=== PATIENT | male | born 1945 | race Caucasian/White ===

== ENCOUNTER → 2020-08-15 10:05 | Outpatient (CLI) | payer OTHER, MEDICARE, SELFPAY ==
[2020-08-15 11:34] LABS: Add Manual Diff / Slide Review NO; Basophils Absolute Auto 0 /uL (0-100); Basophils Percent Auto 0.5 % (0-2); Eosinophils Absolute Auto 0 /uL (0-450); Hematocrit 45.6 % (41-53); Hemoglobin 15.2 g/dL (13.5-17.5); Lymphocytes Absolute Auto 800 /uL (1100-4500); Lymphocytes Percent Auto 14.8 % (25-40); Mean Corpuscular HGB Conc 33.3 % (30-36); Mean Corpuscular Hemoglobin 32.3 PG (26-34); Monocytes Absolute Auto 400 /uL (0-900); Monocytes Percent Auto 7.9 % (3-14); Neutrophils Absolute Auto 3900 /uL (1500-7000); Neutrophils Percent Auto 75.8 % (50-75); Platelet Count 122 X10^3/uL (150-400); Red Cell Distribution Width 13.4 % (11.6-14.8); White Blood Cell Count 5.1 X10^3/uL (4.5-11.0)
[2020-08-15 12:04] LABS: BUN Creatinine Ratio 18.7 (6-22); Blood Urea Nitrogen 17 mg/dL (9-20); Calcium 8.9 mg/dL (8.4-10.2); Carbon Dioxide 30 mmol/L (22-32); Chloride 105 mmol/L (98-107); Estimated Glomerular Filt Rate > 60.0 mL/min (>60); Glucose 106 mg/dL (80-110); HEMOLYSIS < 15 (0-50); Magnesium 2.2 mg/dL (1.6-2.3); Potassium 4.1 mmol/L (3.4-5.1); Sodium 138 mmol/L (137-145)
[2020-08-15 12:33] LABS: TSH w/ Reflex to FT4 1.81 uIU/mL (0.47-4.68)
== END ==
PROVIDERS: PCP Internal Medicine; Referring Provider Internal Medicine Cardiovascular Disease; Visit Provider Internal Medicine Cardiovascular Disease
DX: I48.19 Other persistent atrial fibrillation (principal)
CPT/HCPCS: 36415; 80048; 83735; 84443; 85025

== ENCOUNTER → 2020-10-12 09:01 | Outpatient (CLI) | payer OTHER, SELFPAY ==
--- NOTE | 2020-10-12 | DI.ECHO.S_ITS ---
[place] [facility]---------+ [facility] +---------+ : : [address] : : : : [id number] : : : : Phone: [phone]---------+ Echocardiogram Report + + :Name: ELISEO BAIRD Study Date: 10/12/2020 Height: 73 in : :[facility] ReadingLocation: Weight: 189 lb : : Gender: Male BSA: 2.1 m2 : :: 1945 Age: 74 yrs BP: 128/98 mmHg: :Reason For Study: ATRIAL FIBRILLATION : :Ordering Physician: STACEY, : :HARMEET Performed By: Lacey Haney : :Referring: HARMEET RUBIN : + + Interpretation Summary 1) Normal left ventricular size, wall motion, and systolic function (EF 55- 60%). 2) Normal right ventricular size and function. 3) Severe left atrial enlargement present. 4) Calcific mitral valve with no obvious prolapse. 5) There is moderate mitral regurgitation that is directed posteriorly. 6) There is mild to moderate tricuspid regurgitation. 7) The right ventricular systolic pressure is estimated to be at least 34 mmHg based on an estimated right atrial pressure of 3 mm Hg. 8) There is a trace pericardial effusion that is circumferential. 9) No prior Echo available for comparison. Procedure: A two-dimensional transthoracic echocardiogram with color flow and Doppler was performed. The study quality was technically adequate. There is no prior echocardiogram noted for this patient. The patient was in atrial fibrillation with heart rates between 87-127 bpm during the exam. Left Ventricle: The left ventricle is normal in size. There is mild concentric left ventricular hypertrophy. The ejection fraction is estimated to be 55-60%. Diastolic function could not be accurately assessed due to atrial fibrillation. Right Ventricle: The right ventricle is normal in size and function. Atria: The left atrium is severely dilated. The right atrium is mild to moderately dilated. There is no Doppler evidence for an interatrial shunt. Mitral Valve: The mitral valve chordae are thickened and/or calcified. The mitral papillary muscle appears thickened and/or calcified. There is moderate mitral annular calcification. The mitral valve mean gradient is 3.8 mmHg. There is moderate mitral regurgitation. Aortic Valve: The aortic valve is slightly calcified. The aortic valve is trileaflet. The aortic valve opens well. There is no aortic valve stenosis. No aortic regurgitation is present. Tricuspid Valve: The tricuspid valve leaflets are thin and pliable. The right ventricular systolic pressure is estimated to be at least 34 mmHg based on an estimated right atrial pressure of 3 mm Hg. There is mild to moderate tricuspid regurgitation. Pulmonic Valve: The pulmonic valve leaflets are thin and pliable; valve motion is normal. There is trace pulmonic regurgitation. Great Vessels: The aortic root is borderline dilated. The ascending aorta is at the upper limits of normal in size. The IVC is of normal diameter and collapses greater than 50% with a sniff. This suggests a low right atrial pressure of 3 mm Hg. Pericardium/ Pleura There is a trace pericardial effusion that is circumferential. There is no pleural effusion. MMode/2D Measurements & Calculations LVIDd: 5.7 cm LVOT diam: 2.2 cm LVIDs: 4.2 cm Ao root diam: 4.0 cm FS: 25.8 % asc Aorta Diam: 3.6 cm EPSS: 1.6 cm Ao Arch Diam (Prox Trans): 2.6 cm IVSd: 1.2 cm LVPWd: 1.1 cm LV montoya. diameter/BSA (cm/m^2): 2.7 LV sys. diameter/BSA (cm/m^2): 2.0 LA A2 area: 39.2 cm2 RA long axis: 6.9 cm LA A4 area: 51.0 cm2 RA area: 25.5 cm2 LA length (vol): 8.2 cm RA vol: 79.9 ml LA vol: 206.3 ml RA : 38.0 ml/m2 LA vol index: 98.2 ml/m2 IVC diam: 2.0 cm RVD1 (basal): 3.5 cm TAPSE: 2.1 cm Doppler Measurements & Calculations Ao V2 max: 91.4 cm/sec LVOT Max Enrique: 63.7 cm/sec Ao V2 mean: 55.2 cm/sec LV V1 max P.6 mmHg Ao max P.4 mmHg LV V1 VTI: 11.0 cm Ao mean P.5 mmHg JANETTE(I,D): 3.2 cm2 Ao V2 VTI: 12.9 cm JANETTE(V,D): 2.6 cm2 sev ratio: 0.85 JANETTE indexed to BSA (cm^2/m^2): 1.5 MV E max enrique: 163.3 cm/sec TR max enrique: 279.2 cm/sec MV A max enrique: 3.6 cm/sec TR max P.2 mmHg MV E/A: 45.5 PA V2 max: 49.1 cm/sec Med Peak E' Enrique: 6.8 cm/sec PA V2 mean: 35.2 cm/sec E/E' med: 24.1 PA mean P.58 mmHg Lat Peak E' Enrique: 10.2 cm/sec PA pr(Accel): 44.7 mmHg E/E' lat: 16.0 E/e' average: 20.0 MV dec time: 0.12 sec MVA(VTI): 1.6 cm2 MR ERO: 0.54 cm2 MV V2 mean: 87.8 cm/sec MR PISA: 6.3 cm2 MV mean P.8 mmHg MR flow rate: 267.2 cm3/sec MV V2 VTI: 26.7 cm MR PISA radius: 1.0 cm SV(LVOT): 41.6 ml Reading Physician:01:03 PM
== END ==
PROVIDERS: PCP Internal Medicine; Referring Provider Internal Medicine Cardiovascular Disease; Visit Provider Internal Medicine Cardiovascular Disease
DX: I08.1 Rheumatic disorders of both mitral and tricuspid valves (principal); I48.19 Other persistent atrial fibrillation
CPT/HCPCS: 93306

== ENCOUNTER → 2022-01-19 14:49 | Outpatient (CLI) | payer OTHER, SELFPAY ==
--- NOTE | 2022-01-19 | DI.ECHO.S_ITS ---
[place] +---------+ [facility] +---------+ : : [address] : : : : [id number] : : : : Phone: [phone] +---------+ Echocardiogram Report + + :Name: ELISEO BAIRD Study Date: 01/19/2022 Height: 73 in : :[facility] ReadingLocation: Weight: 200 lb : : Gender: Male BSA: 2.2 m2 : :: 1945 Age: 76 yrs BP: 143/112 mmHg: :Reason For Study: MITRAL INSUFFICIENCY : :Ordering Physician: STACEY, : :HARMEET Performed By: Lacey Haney : :Referring: HARMEET RUBIN : + + Interpretation Summary 1) Normal left ventricular size and thickness with borderline reduced systolic function (EF about 50%). 2) The right ventricle is normal size. Right ventricular systolic function is at the lower limits of normal. 3) The left atrium is very severely dilated. 4) Calcific mitral valve with no obvious prolapse. 5) There is moderate to severe mitral regurgitation. 6) There is moderate tricuspid regurgitation. 7) The right ventricular systolic pressure is estimated to be at least 42 mmHg based on an estimated right atrial pressure of 8 mm Hg. 8) The aortic root is moderately dilated at 4.7cm. 9) There is a trace loculated pericardial effusion. 10) Compared to the Echo done 10/12/2020, mitral regurgitation has worsed from moderate to moderate-severe and LVEF has decreased from 55-60% to about 50% on this study. Procedure: A two-dimensional transthoracic echocardiogram with color flow and Doppler was performed. The study quality was technically adequate. Comparison is made with the echocardiogram of 10/12/2020. The patient was in atrial fibrillation with heart rates between 100-136 bpm during the exam. Left Ventricle: The left ventricle is normal in size and wall thickness. Left ventricular ejection fraction is estimated to be 50 +/- 5%. There is a mild dyssynchronous contraction pattern, consistent with a conduction abnormality. Right Ventricle: The right ventricle is normal size. Right ventricular systolic function is at the lower limits of normal. Atria: The left atrium is severely dilated. There is no Doppler evidence for an interatrial shunt. Mitral Valve: The mitral papillary muscle appears thickened and/or calcified. The mitral valve chordae are thickened and/or calcified. There is moderate mitral annular calcification. The mitral valve leaflets appear moderately thickened, but open well. The mitral valve mean gradient is 5.6 mmHg. There is moderate to severe mitral regurgitation. The mitral regurgitant jet is eccentrically directed. Aortic Valve: The aortic valve is trileaflet. The aortic valve opens well. The aortic valve is slightly calcified. There is no aortic valve stenosis. There is trace aortic regurgitation. Tricuspid Valve: The tricuspid valve is normal in structure but is abnormal in function. There is moderate tricuspid regurgitation. The right ventricular systolic pressure is estimated to be at least 42 mmHg based on an estimated right atrial pressure of 8 mm Hg. Pulmonic Valve: The pulmonic valve leaflets are thin and pliable; valve motion is normal. There is mild pulmonic regurgitation. Great Vessels: The aortic root is moderately dilated. The ascending aorta is at the upper limits of normal in size. The IVC is dilated (diameter is greater than 2.1 cm) yet it collapses greater than 50% with a sniff. This suggests a right atrial pressure of 8 mm Hg. Pericardium/ Pleura There is a trace loculated pericardial effusion. There is no pleural effusion. MMode/2D Measurements & Calculations LVIDd: 5.8 cm LVOT diam: 2.1 cm LVIDs: 4.2 cm Ao root diam: 4.7 cm FS: 27.2 % asc Aorta Diam: 3.7 cm IVSd: 0.70 cm Ao Arch Diam (Prox Trans): 2.9 cm LVPWd: 0.80 cm LV montoya. diameter/BSA (cm/m^2): 2.7 LV sys. diameter/BSA (cm/m^2): 1.9 LA A2 area: 57.3 cm2 RA long axis: 7.4 cm LA A4 area: 52.9 cm2 RA area: 31.6 cm2 LA length (vol): 8.4 cm RA vol: 114.8 ml LA vol: 307.8 ml RA : 53.4 ml/m2 LA vol index: 143.0 ml/m2 IVC diam: 2.5 cm RVD1 (basal): 3.9 cm RVD2 (mid): 3.5 cm TAPSE: 1.6 cm Doppler Measurements & Calculations Ao V2 max: 82.1 cm/sec LVOT Max Enrique: 52.5 cm/sec Ao V2 mean: 59.9 cm/sec LV V1 max P.1 mmHg Ao max P.7 mmHg LV V1 VTI: 8.8 cm Ao mean P.6 mmHg JANETTE(I,D): 2.3 cm2 Ao V2 VTI: 13.6 cm JANETTE(V,D): 2.2 cm2 sev ratio: 0.64 JANETTE indexed to BSA (cm^2/m^2): 1.0 MV E max enrique: 184.9 cm/sec TR max enrique: 291.6 cm/sec MV A max enrique: 2.9 cm/sec TR max P.0 mmHg MV E/A: 64.8 PA pr(Accel): 50.7 mmHg Med Peak E' Enrique: 5.5 cm/sec E/E' med: 33.9 Lat Peak E' Enrique: 10.5 cm/sec E/E' lat: 17.6 E/e' average: 25.7 MV dec time: 0.12 sec MVA(VTI): 1.1 cm2 MV V2 mean: 102.4 cm/sec SV(LVOT): 30.8 ml MV mean P.6 mmHg MV V2 VTI: 28.0 cm Reading Physician:10:25 AM
== END ==
PROVIDERS: PCP Internal Medicine; Visit Provider Internal Medicine Cardiovascular Disease
DX: I08.1 Rheumatic disorders of both mitral and tricuspid valves (principal); I77.810 Thoracic aortic ectasia
CPT/HCPCS: 93306

== ENCOUNTER → 2022-02-06 16:09 | Outpatient (CLI) | payer OTHER, SELFPAY ==
[2022-02-06 16:51] LABS: Add Manual Diff / Slide Review NO; Basophils Absolute Auto 0 /uL (0-100); Basophils Percent Auto 0.5 % (0-2); Eosinophils Absolute Auto 100 /uL (0-450); Eosinophils Percent Auto 1.2 % (2-4); Hemoglobin 15.5 g/dL (13.5-17.5); Lymphocytes Absolute Auto 1000 /uL (1100-4500); Lymphocytes Percent Auto 18.4 % (25-40); Mean Corpuscular HGB Conc 34.4 % (30-36); Mean Corpuscular Hemoglobin 32.2 PG (26-34); Mean Corpuscular Volume 93.7 fL (80-100); Monocytes Absolute Auto 500 /uL (0-900); Neutrophils Absolute Auto 3900 /uL (1500-7000); Neutrophils Percent Auto 70.9 % (50-75); Platelet Count 120 X10^3/uL (150-400); Red Blood Cell Count 4.81 X10^6/uL (4.5-5.9); Red Cell Distribution Width 13.9 % (11.6-14.8); White Blood Cell Count 5.4 X10^3/uL (4.5-11.0)
[2022-02-06 17:04] LABS: BUN Creatinine Ratio 19.3 (6-22); Blood Urea Nitrogen 22 mg/dL (9-20); Calcium 8.8 mg/dL (8.4-10.2); Carbon Dioxide 28 mmol/L (22-32); Chloride 106 mmol/L (98-107); Cholesterol 136 mg/dL (140-199); Estimated Glomerular Filt Rate > 60 mL/min (>60); Glucose 100 mg/dL (80-110); HDL Cholesterol 44 mg/dL (40-60); HEMOLYSIS < 15 (0-50); LDL Cholesterol Calculated 80 mg/dL (<100); Sodium 141 mmol/L (137-145); Triglycerides 59 mg/dL (35-150)
== END ==
PROVIDERS: PCP Internal Medicine; Referring Provider Internal Medicine Cardiovascular Disease; Visit Provider Internal Medicine Cardiovascular Disease
DX: I10 Essential (primary) hypertension (principal)
CPT/HCPCS: 36415; 80048; 80061; 85025

== ENCOUNTER → 2023-01-29 09:04 | Outpatient (CLI) | payer OTHER, SELFPAY ==
--- NOTE | 2023-01-29 | DI.ECHO.S_ITS ---
[place] [facility]---------+ [facility] +---------+ : : [address] : : : : [id number] : : : : Phone: [phone] +---------+ Echocardiogram Report + + :Name: ELISEO BAIRD Study Date: 01/29/2023 Height: 73 in : :[facility] ReadingLocation: Weight: 210 lb : : Gender: Male BSA: 2.2 m2 : :: 1945 Age: 77 yrs BP: 118/86 mmHg: :Reason For Study: ATRIAL FIBRILLATION : :Ordering Physician: STACEY, : :EAN Performed By: Lacey Haney : :Referring: HARMEET RUBIN : + + Interpretation Summary 1) Normal left ventricular size and thickness with borderline reduced systolic function (EF about 50%). 2) The right ventricle is normal size. Right ventricular systolic function is at the lower limits of normal. 3) The left atrium is very severely dilated. 4) Calcific mitral valve with no obvious prolapse. 5) There is moderate to severe mitral regurgitation. 6) There is mild to moderate tricuspid tricuspid regurgitation. 7) The right ventricular systolic pressure is estimated to be at least 42 mmHg based on an estimated right atrial pressure of 8 mm Hg. 8) The aortic root is moderately dilated at 4.3cm. 9) Compared to the Echo done 01/19/2022, no significant change. Procedure: A two-dimensional transthoracic echocardiogram with color flow and Doppler was performed. The study quality was technically good. Comparison is made with the echocardiogram of 01/19/2022. The patient was in atrial fibrillation with heart rates between 88-115 bpm during the exam. Left Ventricle: The left ventricle is normal in size and wall thickness. Left ventricular ejection fraction is estimated to be 50 +/- 5%. Right Ventricle: The right ventricle is normal size. Right ventricular systolic function is at the lower limits of normal. Atria: The left atrium is severely dilated. The right atrium is severely dilated. There is no Doppler evidence for an interatrial shunt. Mitral Valve: The mitral papillary muscle appears thickened and/or calcified. The mitral valve chordae are thickened and/or calcified. There is moderate mitral annular calcification. The mitral valve leaflets are mildly calcified. The mitral valve mean gradient is 5.8 mmHg. The mitral regurgitant jet is eccentrically directed. There is moderate to severe mitral regurgitation. Aortic Valve: The aortic valve is trileaflet. The aortic valve opens well. There is no aortic valve stenosis. There is mild aortic regurgitation. Tricuspid Valve: Tricuspid leaflets are thickened. There is mild to moderate tricuspid regurgitation. The right ventricular systolic pressure is estimated to be at least 42 mmHg based on an estimated right atrial pressure of 8 mm Hg. Pulmonic Valve: The pulmonic valve leaflets are thin and pliable; valve motion is normal. There is mild pulmonic regurgitation. Great Vessels: The aortic root is mildly dilated. The dimensions of the ascending aorta are normal. The IVC is dilated (diameter is greater than 2.1 cm) yet it collapses greater than 50% with a sniff. This suggests a right atrial pressure of 8 mm Hg. Pericardium/ Pleura There is no pericardial effusion. There is no pleural effusion. MMode/2D Measurements & Calculations LVIDd: 5.3 cm LVOT diam: 2.2 cm LVIDs: 3.7 cm Ao root diam: 4.3 cm FS: 30.7 % asc Aorta Diam: 3.5 cm IVSd: 0.92 cm Ao Arch Diam (Prox Trans): 2.4 cm LVPWd: 0.96 cm LV montoya. diameter/BSA (cm/m^2): 2.4 LV sys. diameter/BSA (cm/m^2): 1.7 LA A2 area: 52.0 cm2 RA long axis: 8.1 cm LA A4 area: 50.4 cm2 RA area: 37.8 cm2 LA length (vol): 8.8 cm RA vol: 150.5 ml LA vol: 252.6 ml RA : 68.5 ml/m2 LA vol index: 115.0 ml/m2 IVC diam: 2.7 cm RVD1 (basal): 4.0 cm RVD2 (mid): 3.0 cm TAPSE: 1.4 cm Doppler Measurements & Calculations Ao V2 max: 83.1 cm/sec LVOT Max Enrique: 58.3 cm/sec Ao V2 mean: 59.0 cm/sec LV V1 max P.4 mmHg Ao max P.8 mmHg LV V1 VTI: 10.2 cm Ao mean P.5 mmHg JANETTE(I,D): 2.8 cm2 Ao V2 VTI: 14.1 cm JANETTE(V,D): 2.8 cm2 sev ratio: 0.72 JANETTE indexed to BSA (cm^2/m^2): 1.3 MV E max enrique: 166.5 cm/sec TR max enrique: 282.4 cm/sec MV A max enrique: 1.3 cm/sec TR max P.9 mmHg MV E/A: 123.9 PA V2 max: 66.8 cm/sec Med Peak E' Enrique: 5.1 cm/sec PA V2 mean: 45.5 cm/sec E/E' med: 32.7 PA mean P.94 mmHg Lat Peak E' Enrique: 7.9 cm/sec PA pr(Accel): 48.2 mmHg E/E' lat: 21.1 E/e' average: 26.9 MV dec time: 0.21 sec MVA(VTI): 1.8 cm2 MV V2 mean: 104.8 cm/sec SV(LVOT): 39.9 ml MV mean P.8 mmHg MV V2 VTI: 22.7 cm Reading Physician:01:07 PM
== END ==
PROVIDERS: PCP Internal Medicine; Referring Provider Internal Medicine Cardiovascular Disease; Visit Provider Internal Medicine Cardiovascular Disease
DX: I48.19 Other persistent atrial fibrillation (principal); I34.0 Nonrheumatic mitral (valve) insufficiency; I77.89 Other specified disorders of arteries and arterioles; I51.7 Cardiomegaly; I07.1 Rheumatic tricuspid insufficiency
CPT/HCPCS: 93306